=== PATIENT | female | born 1955 | race Caucasian/White ===

== ENCOUNTER 2024-02-28 11:24 | Emergency (ER) | payer MEDICARE, OTHER, SELFPAY ==
[2024-02-28 11:36] VITALS: BP 151/89
--- NOTE | 2024-02-28 13:35 | ED.GENMED ---
History of Present Illness
General
Chief Complaint: Abdominal Symptoms
Source: patient
Time Seen by Provider: 02/28/24 13:24
Travel History
Have you had any contact with someone who has COVID-19?: No
Do you have any symptoms of coronavirus? Fever > 100 degrees, chills, cough, shortness of breath, sore throat, loss of taste or smell, muscle aches, or headache?: No
History of Present Illness
History of Present Illness:
68 year old female presents with ongoing left lower abdominal pain for 2 weeks. She has seen her family doctor and was prescribed moxifloxacin for a week initially and then another week after no improvement. She notes mucousy stools but no other
significant bowel movement. She is belching but no fever or vomiting. The pain is fairly constant without associated urinary symptoms. No blood in the stool. She does have history of diverticulitis. No other complaints
Past History
Past History
ED Past Medical History: HTN, Other (Kidney stones) and Other (Diverticulitis/diverticulosis)
ED Past Surgical History: Urological (Kidney stone removal)
Social History
Tobacco: Non-smoker
Alcohol: None
Drug: None
Personal:
Living: with family
Phy Exam
Physical Exam
Physical Exam:
General: Well-appearing female no acute respiratory distress
HEENT: Normocephalic atraumatic
Heart: RRR, no murmurs
Lungs: CTA bilaterally
ABd: Soft, tender to LLQ, no guarding or rebound
Ext: no cyanosis or edema
skin: warm, no rash
Course
Orders/Labs/Results
Orders:
Orders
02/28/24 13:33
STOOL [C difficile Antigen & Toxins] Urgent
MARIZA Source: Feces/Stool
Specimen Description:
Stool Culture Urgent
MARIZA Source: Feces/Stool
Specimen Description:
02/28/24 13:39
CT Abd/pelvis W Iv Cont Urgent
Comment:
Reason For Exam: LLQ pain
Complete Blood Count/With Diff Urgent
Comprehensive Metabolic Panel Urgent
Urinalysis Reflex To Culture Urgent
Date Specimen was Collected: 02/28/24
Time Specimen was Collected: 13:38
Urine Microscopic Reflex Cult Urgent
Urine Culture Urgent
MARIZA Source: U
Specimen Description:
Date Specimen was Collected: 02/28/24
Time Specimen was Collected: 13:38
Abnormal Lab Results
02/28/24
13:39
AST 39 H U/L
(1436)
Urine Ketones Trace A
(Negative)
Leukocyte Esterase Rfl 1+ A
(Negative)
Urine Bacteria (Reflex) Few A
(Negative)
02/28/24 13:39
02/28/24 13:39
Vital Signs
Initial and Last Documented VS:
Initial Vital Signs
Temp Pulse Resp BP Pulse Ox
98.5 F 77 17 151/89 100
02/28/24 11:36 02/28/24 11:36 02/28/24 11:36 02/28/24 11:36 02/28/24 11:36
Last Documented Vital Signs
Temp Pulse Resp BP Pulse Ox
98.5 F 77 17 132/76 96
02/28/24 11:36 02/28/24 11:36 02/28/24 11:36 02/28/24 14:00 02/28/24 14:00
MDM/Problems Addressed
Differential Diagnosis Includes:
Left lower quadrant abdominal pain. Consider diverticulitis versus abscess versus constipation versus UTI.
Check labs and urine. CT pending. Patient has had 2 rounds of antibiotics
*Critical Care Note
Total Time (30-74mins, 75-104mins- exclusive of procedures): Not Applicable
Update Note
Update Note:
CT negative without acute finding. Labs reviewed without significant finding. Do not suspect obstruction or diverticulitis or abscess at this point given negative workup. Recommended bland diet and GI follow-up. Stable for discharge.
ED Attending Note
-
Portions of this chart may have been created with voice recognition software.� Occasional wrong word or��sound alike� substitutions may have occurred due to the inherent limitations of voice recognition software.
Discharge Plan
Departure
Patient Disposition: Home (Routine Discharge)
Date of Disposition: 02/28/24
Time of Disposition: 16:47
Patient with high blood pressure during this ER visit?: No
Discharge Problem:
Abdominal pain
Instructions: Abdominal Pain
Prescriptions:
No Action
ondansetron 4 MG tablet,disintegrating
4 mg PO TIDPRN PRN (Reason: NAUSEA) Qty: 12 0RF
hydrocodone-acetaminophen [Vicodin] 1 EACH tablet
1 ea PO Q6H PRN (Reason: pain) Qty: 15 0RF
dicyclomine 10 mg capsule
10 mg PO BID PRN (Reason: abdominal pain) Qty: 15 0RF
pantoprazole [Protonix] 40 mg tablet,delayed release (DR/EC)
40 mg PO DAILY Qty: 30 0RF
Referrals:
Jonnathan Mendoza, DO [Family Provider] -
Activity Restrictions/Additional Instructions:
Continue drinking plenty fluids. Eat a bland diet. Return for worsening symptoms otherwise follow-up with GI
Interventions
Interventions:
*Risk Screen - Suicide Last Done: 02/28/24 11:37
*General Assessment Last Done: 02/28/24 11:37
*Neglect/Abuse Screening Last Done: 02/28/24 11:37
*ED COVID-19 Vaccine History Last Done: 02/28/24 11:36
EN-Ieovvn-Fjsjmhtwgu Assessment Last Done: 02/28/24 13:38
Discharge Date and Time
Print Language: MACANESE
[2024-02-28 13:37] VITALS: BMI 33.7
[2024-02-28 13:42] VITALS: BP 126/76
[2024-02-28 13:51] LABS: Urine Albumin Negative (Neg - Trace); Urine Bilirubin Negative (Negative); Urine Character Clear (Clear); Urine Color Yellow; Urine Glucose Negative (Negative); Urine Ketone Trace (Negative); Urine Leukocyte 1+ (Negative); Urine Nitrite Negative (Negative); Urine Occult Blood Negative (Negative); Urine Urobilinogen Negative (Neg - 1+)
[2024-02-28 13:52] LABS: % Basophils 0.3 % (0-2); % Eosinophils 0.3 % (0-6); % Immature Granulocytes 0.3 % (0-0.5); % Lymphocytes 23.3 % (20.5-51.1); % Monocytes 7.3 % (1.7-9.3); % Neutrophils 68.5 % (42.2-75.2); Absolute Lymphocytes 1.7 10^3/uL (1.2-3.4); Absolute Monocytes 0.5 10^3/uL (0.1-0.6); Hematocrit 38.3 % (37.0-47.0); Hemoglobin 13.7 g/dL (12.0-16.0); Mean Corp Hgb Conc. 35.8 g/dL (33.0-37.0); Mean Corpuscular Hgb 29.9 pg (27.0-31.0); Mean Corpuscular Volume 83.6 fL (81.0-99.0); Mean Platelet Volume 10.3 fL (7.4-10.4); Nucleated Red Blood Cells % 0 %; Platelet Count 135 10^3/uL (130-400); Red Blood Cell Count 4.58 10^6/uL (4.20-5.40); Red Cell Dist. Width 12.4 % (11.5-14.5); White Blood Cell Count 7.3 10^3/uL (4.8-10.8)
[2024-02-28 14:00] VITALS: BP 132/76
[2024-02-28 14:08] LABS: ALT (SGPT) 29 U/L (0-35); AST (SGOT) 39 U/L (14-36); Albumin 4.7 g/dl (3.5-5.0); Alkaline Phosphatase 92 U/L (38-126); Blood Urea Nitrogen 7 mg/dl (7-17); Calcium 10.2 mg/dl (8.4-10.2); Carbon Dioxide 26 mmol/L (22-30); Chloride 101 mmol/L (98-107); Estimated Creatinine Clearance 87 ml/min; Glucose 99 mg/dl (70-99); Sodium 138 mmol/L (135-145); Total Bilirubin 0.9 mg/dl (0.2-1.3); Total Protein 7.3 g/dl (6.3-8.2); eGFR > 60.00
[2024-02-28 14:09] LABS: Urine Red Blood Cell 0-2 /HPF (0-2); Urine Squamous Cell 0-2 /LPF (Few)
[2024-02-28 14:10] LABS: Urine Bacteria Few (Negative)
[2024-02-28 17:08] VITALS: BP 126/88
== END 2024-02-28 17:08 | disposition home or self-care (01) ==
LOC: EMR 11:24
PROVIDERS: Physician Assistant; EMERGENCY PHYSICIAN Emergency Medicine; FAMILY PHYSICIAN Family Medicine
DX: R10.32 Left lower quadrant pain (principal)
CPT/HCPCS: 99285; 74177; 80053; 81003; 81015; 85025; 87086; Q9967

== ENCOUNTER → 2024-07-19 10:13 | Outpatient (REF) | payer MEDICARE, OTHER, SELFPAY | LOC: HWWDC 10:13 | PROVIDERS: ATTENDING PHYSICIAN Obstetrics & Gynecology Gynecology; FAMILY PHYSICIAN Family Medicine | DX: Z12.31 Encounter for screening mammogram for malignant neoplasm of breast (principal) | CPT/HCPCS: 77063; 77067 ==

== ENCOUNTER → 2024-12-16 08:51 | Outpatient (REF) | payer MEDICARE, OTHER, SELFPAY | LOC: RCS 08:51 | PROVIDERS: ATTENDING PHYSICIAN Internal Medicine Cardiovascular Disease; FAMILY PHYSICIAN Family Medicine | DX: R07.89 Other chest pain (principal) | CPT/HCPCS: 93017; 93350 ==

== ENCOUNTER 2025-05-25 11:50 | Emergency (ER) | payer MEDICARE, OTHER, SELFPAY ==
[2025-05-25 11:54] VITALS: BP 190/90
--- NOTE | 2025-05-25 12:35 | ED.GENMED ---
History of Present Illness
General
Chief Complaint: Abdominal Symptoms
Source: patient
Exam Limitations: none
Time Seen by Provider: 05/25/25 12:28
History of Present Illness
History of Present Illness:
See MDM
Past History
Past History
ED Past Medical History: HTN, Other (Kidney stones) and Other (Diverticulitis/diverticulosis)
ED Past Surgical History: Urological (Kidney stone removal)
Social History
Tobacco: Non-smoker
Alcohol: None
Drug: None
Personal:
Living: with family
Phy Exam
Physical Exam
Physical Exam:
See MDM
Course
Orders/Labs/Results
Orders:
Orders
05/25/25 12:34
CT Abd/pelvis W Iv Cont Urgent
Comment:
Reason For Exam: general abd pain
05/25/25 12:58
Complete Blood Count/With Diff Urgent
Comprehensive Metabolic Panel Urgent
Lipase Urgent
Abnormal Lab Results
05/25/25
12:58
Neutrophils % 78.7 H %
(42.2-75.2)
Lymphocytes % 15.2 L %
(20.5-51.1)
Glucose 103 H mg/dl
(70-99)
AST 54 H U/L
(14-36)
ALT 52 H U/L
(0-35)
05/25/25 12:58
05/25/25 12:58
Vital Signs
Initial and Last Documented VS:
Initial Vital Signs
Temp Pulse Resp BP Pulse Ox
98.0 F 94 16 190/90 98
05/25/25 11:54 05/25/25 11:54 05/25/25 11:54 05/25/25 11:54 05/25/25 11:54
Last Documented Vital Signs
Temp Pulse Resp BP Pulse Ox
98.6 F 94 16 134/80 97
05/25/25 13:26 05/25/25 11:54 05/25/25 11:54 05/25/25 14:00 05/25/25 14:30
MDM/Problems Addressed
Differential Diagnosis Includes:
Note:
CHIEF COMPLAINT(S)
Abdominal pain and distension.
HISTORY OF PRESENT ILLNESS
The patient is a 69-year-old female presenting with abdominal pain and significant distension. She reports a history of constipation for which she has been taking laxatives, including Miralax and Dulcolax. Recently, she transitioned to experiencing
the opposite bowel pattern with nausea and occasional vomiting. She stated, 'I did have constipation, and then I was taking stuff, so then it came the opposite for the last few days.' The abdominal distension feels 'really bloated' but not
localized. Although she had some bowel movement yesterday and a little this morning, she described it as 'not normal.' Recently, she started semaglutide therapy to aid weight loss and noted a 20-pound loss. She experiences decreased appetite with
this medication. Concern for pancreatitis as a side effect of semaglutide was discussed. Decreased fluid intake was acknowledged as a possible factor for her current condition. The patient saw her primary care provider who suggested further
evaluation due to the abdominal symptoms.
CHRONIC MEDICAL CONDITIONS SIGNIFICANTLY AFFECTING CARE
The patient is on semaglutide therapy, which may contribute to gastrointestinal symptoms such as constipation and nausea.
PHYSICAL EXAM
General: Alert, no acute distress.
Skin: Warm, dry.
Head: Normocephalic, atraumatic
Neck: Appears supple, trachea midline.
Eyes, Ears, Nose, Mouth, and Throat: Oral mucosa moist.
Cardiovascular: No signs of cyanosis
Respiratory: Respirations are non-labored.
Abdomen: Mild abdominal gaseous distention without significant discomfort
Musculoskeletal: No deformities
Neurological: No focal neurological deficit observed.
Psychiatric: Cooperative, appropriate mood and affect.
PLAN
Blood work to evaluate for pancreatitis.
CT scan to assess for any intestinal blockage or diverticulitis.
Discussion on the importance of adequate hydration, particularly in the context of chronic laxative use and semaglutide therapy.
DIFFERENTIAL DIAGNOSIS
The Differential Diagnosis includes, in no particular order and is not limited to:
1. Constipation-related bowel obstruction
2. Diverticulitis
3. Pancreatitis secondary to semaglutide
4. Bowel obstruction (mechanical)
5. Irritable Bowel Syndrome (IBS)
6. Gastroparesis
7. Inflammatory Bowel Disease (IBD)
8. Gastrointestinal infection
9. Peptic ulcer disease
10. Medication side effect (semaglutide or laxatives)
SUMMARY OF ENCOUNTER
The patient, a 69-year-old female, was seen in the emergency department for evaluation of abdominal pain and distension. She has a history of constipation and recently transitioned to diarrhea, accompanied by nausea and occasional vomiting. She
recently started on semaglutide, which may contribute to her symptoms. A CT scan was performed, showing evidence of diverticulosis but no signs of diverticulitis. The patient�s primary care provider had already written a prescription for
antibiotics; however, it was discussed to hold the antibiotics unless she develops increased pain despite regular bowel movements. The patient was counseled regarding the findings and the importance of follow-up with her primary care provider.
DISPOSITION
The patient was discharged, feeling comfortable with the proposed outpatient management plan.
ASSESSMENT
The patient presents with abdominal pain and distension likely due to constipation and possible complications from semaglutide therapy. Imaging showed diverticulosis without diverticulitis.
PLAN
- Monitor for any increase in abdominal pain or worsening symptoms.
- Hold antibiotics unless the condition worsens.
- Continue management of constipation with dietary and possible pharmacological interventions.
- Follow up with primary care for further evaluation and management of her symptoms.
INDEPENDENT REVIEW OF LABS AND INTERPRETATION OF TESTS
- My independent interpretation of the CT scan confirms evidence of diverticulosis; no convincing evidence of diverticulitis noted.
PATIENT EDUCATION AND COUNSELING
The patient was advised to monitor symptoms, particularly if pain increases or bowel habits change significantly. She was counseled about the findings of diverticulosis from the CT scan and the decision to hold antibiotics unless her condition
worsens. The importance of follow-up with her primary care provider was stressed.
FOLLOW-UP INSTRUCTIONS
She was advised to follow up with her primary care provider promptly for further workup and to ensure optimal management of her symptoms.
MEDICATION RECONCILIATION
- Antibiotics prescribed by the primary care provider but currently on hold pending symptom progression.
MEDICAL DECISION MAKING
- Number and Complexity of Problems Addressed: Chronic conditions affecting care include constipation and potential side effects from semaglutide. Differential Diagnosis considered: Constipation-related bowel obstruction, diverticulitis,
pancreatitis secondary to semaglutide, bowel obstruction, IBS, gastroparesis, IBD, gastrointestinal infection, peptic ulcer disease, medication side effect.
- Data:
- Category 1: CT scan was ordered and independently interpreted, showing evidence of diverticulosis without diverticulitis.
- Risk: Consideration of Admission/Observation: Escalation of care including admission/observation was considered given the complexity and risk of the patients presenting complaint, exam findings, and/or their underlying comorbidities. However,
ultimately I feel the patient is safe for outpatient management with close follow-up. Reasoning: Work-up reassuring, does not reveal any acute life/organ threatening processes, patients symptoms well controlled upon reevaluation, reexamination is
reassuring, vitals are stable, patient agreeable with discharge, reliable for follow-up.
DIAGNOSIS
- Constipation with abdominal distension (ICD-10: K59.00)
- Diverticulosis of the colon (without perforation or abscess) (ICD-10: K57.30)
*Pulse Oximetry
SaO2: 98
Oxygen Mode of Delivery: Room air
Patient hypoxic: no
*Critical Care Note
Total Time (30-74mins, 75-104mins- exclusive of procedures): Not Applicable
ED Attending Note
-
Portions of this chart may have been created with voice recognition software.� Occasional wrong word or��sound alike� substitutions may have occurred due to the inherent limitations of voice recognition software.
Discharge Plan
Departure
Patient Disposition: Home (Routine Discharge)
Date of Disposition: 05/25/25
Time of Disposition: 15:34
Patient with high blood pressure during this ER visit?: No
Discharge Problem:
Constipation, Diverticulosis
Instructions: Dehydration, Adult (DC)
Prescriptions:
No Action
ondansetron 4 MG tablet,disintegrating
4 mg PO TIDPRN PRN (Reason: NAUSEA) Qty: 12 0RF
hydrocodone-acetaminophen [Vicodin] 1 EACH tablet
1 ea PO Q6H PRN (Reason: pain) Qty: 15 0RF
dicyclomine 10 mg capsule
10 mg PO BID PRN (Reason: abdominal pain) Qty: 15 0RF
pantoprazole [Protonix] 40 mg tablet,delayed release (DR/EC)
40 mg PO DAILY Qty: 30 0RF
Referrals:
Jonnathan Mendoza DO [Family Provider, Family Practice]
Activity Restrictions/Additional Instructions:
Please return for any worsening symptoms.
You may return at any time if you have further concerns.
Please follow up with your doctor at the first available appointment, preferably this week.
If your pain continues despite moving your bowels, please talk to your doctor about starting the antibiotics already prescribed.
Thank you for choosing [facility].
Interventions
Interventions:
*Risk Screen - Suicide Last Done: 05/25/25 11:54
*General Assessment Last Done: 05/25/25 13:29
*Neglect/Abuse Screening Last Done: 05/25/25 11:54
*ED- Fall Risk Assessment Last Done: 05/25/25 13:29
*ED COVID-19 Vaccine History Last Done: 05/25/25 13:29
MH-Fwnjtz-Bqpercozdz Assessment Last Done: 05/25/25 13:28
Discharge Date and Time
Print Language: BURKINAN
[2025-05-25 12:51] VITALS: BP 126/69
[2025-05-25 13:01] VITALS: BP 119/65
[2025-05-25 13:09] LABS: Hematocrit 40.0 % (37.0-47.0); Hemoglobin 13.8 g/dL (12.0-16.0); Mean Corp Hgb Conc. 34.5 g/dL (33.0-37.0); Mean Corpuscular Volume 86.2 fL (81.0-99.0); Nucleated Red Blood Cells % 0 %; Platelet Count 162 10^3/uL (130-400); Red Cell Dist. Width 12.6 % (11.5-14.5)
[2025-05-25 13:27] VITALS: BMI 34.7
[2025-05-25 13:32] LABS: ALT (SGPT) 52 U/L (0-35); AST (SGOT) 54 U/L (14-36); Albumin 4.8 g/dl (3.5-5.0); Alkaline Phosphatase 83 U/L (38-126); Blood Urea Nitrogen 13 mg/dl (7-17); Calcium 9.8 mg/dl (8.4-10.2); Carbon Dioxide 26 mmol/L (22-30); Chloride 104 mmol/L (98-107); Estimated Creatinine Clearance 88 ml/min; Glucose 103 mg/dl (70-99); Lipase 103 U/L (23-300); Potassium 4.3 mmol/L (3.5-5.1); Sodium 137 mmol/L (135-145); Total Protein 7.4 g/dl (6.3-8.2); eGFR > 60.00
[2025-05-25 14:00] VITALS: BP 134/80
[2025-05-25 15:46] VITALS: BP 124/75
[2025-05-25 15:54] VITALS: BP 124/74
== END 2025-05-25 16:00 | disposition home or self-care (01) ==
LOC: EMR 11:50
PROVIDERS: EMERGENCY PHYSICIAN Student in an Organized Health Care Education/Training Program; FAMILY PHYSICIAN Family Medicine
DX: K59.00 Constipation, unspecified (principal); K57.30 Diverticulosis of large intestine without perforation or abscess without bleeding; I10 Essential (primary) hypertension; Z87.442 Personal history of urinary calculi
CPT/HCPCS: 99284; 74177; 80053; 83690; 85025; Q9967